=== PATIENT | female | born 1945 ===

== ENCOUNTER → 2018-07-03 06:41 | Outpatient (CLI) | payer OTHER | END | disposition home or self-care (01) | LOC: LAB 06:41 | DX: E11.29 Type 2 diabetes mellitus with other diabetic kidney complication (principal) ==

== ENCOUNTER → 2018-07-18 | Day surgery (SDC) | payer OTHER ==
[~2018-07-18] MED LIST: ATORVASTATIN CA40 MG; LISINOPRIL20 MG; SYNTHROID50 MCG
== END | disposition home or self-care (01) ==
LOC: CIR.AMB 08:49
DX: M43.16 Spondylolisthesis, lumbar region (principal)